=== PATIENT | male | born 1985 | race Caucasian/White ===

== ENCOUNTER → 2019-04-02 | Outpatient (CLI) | payer BC ==
--- NOTE | 2019-04-02 17:34 | RAD ---
EXAM DESCRIPTION: Lumbar Spine 3 Views CLINICAL HISTORY: LUMBOSACRAL RADICULITIS COMPARISON: None Available. TECHNIQUE: AP/lateral/coned-down lateral FINDINGS: There is mild leftward curvature of the lumbar spine. 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 Frontal view shows intact pedicles and transverse processes. Sacrum appears intact with normal SI joints. Lateral view shows no vertebral compressions. Disc height is well-preserved. Normal bony mineralization. No destructive lesion. IMPRESSION: Mild leftward curvature of the lumbar spine. Otherwise no diagnostic abnormality. Electronically signed by: Julio Hauser MD 04/02/2019 5:32 PM CDT
== END ==
LOC: RAD 16:50
PROVIDERS: ATTEND Emergency Medicine
DX: M54.17 Radiculopathy, lumbosacral region (principal)